=== PATIENT | female | born 1945 | race Caucasian/White ===

== ENCOUNTER 2017-04-17 18:13 | Emergency (ER) | payer MEDICARE, BC ==
[2017-04-17 18:42] VITALS: TEMP 97.6
[2017-04-17 18:53] LABS: ALBUMIN 3.7 gm/dl (3.4-5.0); CALCIUM 9.2 mg/dl (8.5-10.1); POTASSIUM 4.1 mMol/L (3.5-5.1)
[2017-04-17] MEDS ORDERED: METOPROLOL TARTRATE 5 MG/5 ML SOL IV ONE ×6 (19:20→19:59)
[2017-04-17] MEDS: SODIUM CHLORIDE 0.9% FLUSH 10 ML SOL IV PRN ×2 (19:42→20:03)
[2017-04-17 20:29] VITALS: RESP 21
[2017-04-17 22:19] VITALS: BP 160/81; PULSE 86; O2SAT 94
== END 2017-04-17 21:05 | disposition short-term general hospital (02) | DRG 310 ==
LOC: ED 18:13
DX: R00.0 Tachycardia, unspecified (principal)
CPT/HCPCS: 36415; 80053; 84484; 93005; 99285

== ENCOUNTER 2017-08-22 22:43 | Emergency (ER) | payer MEDICARE, BC ==
[2017-08-22] MEDS ORDERED: SODIUM CHLORIDE 0.9% FLUSH 10 ML SOL IV PRN (22:58)
[2017-08-22 23:07] VITALS: TEMP 97.6
[2017-08-22 23:11] LABS: BASOPHILS % (AUTO) 1 % (0-3); EOSINOPHILS % (AUTO) 5 % (0-9); HEMATOCRIT 37 % (35-47); MEAN CORPUSCULAR HGB CONC 33.8 gm/dl (32.0-36.0); MEAN CORPUSCULAR VOLUME 87 fL (81-99); MONOCYTES % (AUTO) 9.8 % (0-12); NEUTROPHILS % (AUTO) 52.2 % (37-80)
[2017-08-22 23:19] LABS: CALCIUM 9.2 mg/dl (8.5-10.1); GLOM FILT RATE 92 mL/min (>60); SODIUM 141 mMol/L (136-145)
[2017-08-22] MEDS ORDERED: LORAZEPAM 0.5 MG TAB PO ONE (23:31)
[2017-08-22] MEDS ORDERED: LORAZEPAM 0.5 MG TAB ONE (23:31)
[2017-08-23 00:03] VITALS: BP 141/101; PULSE 107; RESP 23; O2SAT 96
== END 2017-08-23 00:08 | disposition home or self-care (01) | DRG 310 ==
LOC: ED 22:43
DX: R00.2 Palpitations (principal); F41.9 Anxiety disorder, unspecified
CPT/HCPCS: 36415; 71045; 80048; 82550; 84484; 85025; 93005; 99284; 99285; A9270-GY